=== PATIENT | male | born 2005 | race Two or more races ===

== ENCOUNTER 2024-03-13 23:59 | Inpatient (IN) | payer MEDICAID ==
[~2024-03-13] VITALS: Ht 167.6 cm; Wt 82.7 kg
[2024-03-14 01:00] LABS: BASOPHILS % (AUTO) 0.7 % (0.0-2.0); EOSINOPHILS % (AUTO) 1.1 % (1.0-6.0); HEMATOCRIT 46.1 % (41-53); HEMOGLOBIN 15.5 g/dL (13.5-17.5); LYMPHOCYTES # (AUTO) 2.8 K/uL (1.0-4.8); LYMPHOCYTES % (AUTO) 40.5 % (22.0-44.0); MEAN CORPUSCULAR HEMOGLOBIN 29.9 pg (26.0-34.0); MEAN CORPUSCULAR HGB CONC 33.7 G/dL (31.0-37.0); MEAN CORPUSCULAR VOLUME 89 fL (80-100); MONOCYTES # (AUTO) 0.5 K/uL (0.1-1.0); MONOCYTES % (AUTO) 7.4 % (2.0-9.0); NEUTROPHILS # (AUTO) 3.5 K/uL (1.8-7.7); NEUTROPHILS % (AUTO) 50.3 % (40.0-70.0); PLATELET COUNT (AUTO) 206 K/uL (150-450)
[2024-03-14] MEDS: SODIUM CHLORIDE 0.9% 1,000 ML IV ONE (01:06)
[2024-03-14 01:18] LABS: COVID AG,FIA SOURCE NASAL SWAB
[2024-03-14 02:03] LABS: SARS-COV2 (COVID) ANTIGEN,FIA Negative (Negative)
[2024-03-14 02:38] LABS: ANION GAP 12 mmol/L (8-16); CALCIUM, TOTAL 8.3 mg/dL (8.8-10.5); CARBON DIOXIDE 23 mmol/L (22-29); CHLORIDE 107 mmol/L (98-107); CREATININE 0.94 mg/dL (0.60-1.30); GLOMERULAR FILTR. RATE CALC > 60 mL/min (>60); GLUCOSE,RANDOM 105 mg/dL (70-110); POTASSIUM 3.4 mmol/L (3.5-5.1); SODIUM SERUM 142 mmol/L (136-145); UREA NITROGEN, BLOOD 9 mg/dL (7-18)
[2024-03-14 02:43] LABS: ALANINE AMINOTRANSFERASE 36 U/L (12-78); ALBUMIN 3.7 g/dL (3.4-5.0); ALKALINE PHOSPHATASE 77 U/L (46-116); ASPARTATE AMINOTRANSFERASE 30 U/L (15-37); TOTAL PROTEIN, SERUM 6.8 g/dL (6.4-8.2)
[2024-03-14 02:45] LABS: APPEARANCE,URINE CLEAR (CLEAR); BILIRUBIN,URINE NEGATIVE (NEGATIVE); COLOR,URINE LIGHT YELLOW (YELLOW); GLUCOSE, URINE (UA) NEGATIVE (NEGATIVE); KETONES,URINE NEGATIVE (NEGATIVE); LEUKOCYTE ESTERASE ,URINE NEGATIVE (NEGATIVE); NITRATE,URINE NEGATIVE (NEGATIVE); OCCULT BLOOD,URINE NEGATIVE (NEGATIVE); SPECIFIC GRAVITIY, URINE 1.021 (1.003-1.030); UROBILINOGEN,URINE <=1.0 mg/dL (<=1.0)
[2024-03-14 02:46] LABS: SALICYLATE < 0.2 mg/dL (2.8-20.0)
[2024-03-14 02:47] LABS: ACETAMINOPHEN 109 mcg/mL (10-30)
[2024-03-14 02:48] LABS: PROTEIN,URINE NEGATIVE (NEGATIVE)
[2024-03-14 02:51] LABS: ALCOHOL, URINE DRUG SCREEN NEGATIVE (NEGATIVE); AMPHET/METH SCREEN,URINE NEGATIVE (NEGATIVE); BARBITURATE SCREEN, URINE NEGATIVE (NEGATIVE); BENZODIAZEPINES SCREEN,URINE NEGATIVE (NEGATIVE); CANNABINOID SCREEN,URINE NEGATIVE (NEGATIVE); COCAINE SCREEN,URINE NEGATIVE (NEGATIVE); METHADONE SCREEN, URINE NEGATIVE (NEGATIVE); OPIATE SCREEN,URINE NEGATIVE (NEGATIVE); PHENCYCLIDINE SCREEN,URINE NEGATIVE (NEGATIVE)
[2024-03-14 03:51] LABS: ALBUMIN 3.6 g/dL (3.4-5.0); BILIRUBIN,DIRECT 0.3 mg/dL (0.00-0.20); TOTAL PROTEIN, SERUM 6.6 g/dL (6.4-8.2)
[2024-03-14] MEDS ORDERED: WATER IV ONE (04:30)
[2024-03-14] MEDS ORDERED: ACETYLCYSTEINE IV ONE (04:30)
[2024-03-14] MEDS ORDERED: DEXTROSE 5% IV ONE (04:30)
[2024-03-14] MEDS: DEXTROSE 5% IV ONE ×2 (04:46→09:57)
[2024-03-14] MEDS: WATER IV ONE ×2 (04:46→09:57)
[2024-03-14] MEDS: ACETYLCYSTEINE IV ONE ×2 (04:46→09:57)
[2024-03-14] MEDS: ONDANSETRON HCL 4 MG/2 ML VIAL IVP ONE (05:56)
[2024-03-14] MEDS: DOCUSATE SODIUM 100 MG CAPSULE PO SCH (08:16)
[2024-03-14] MEDS ORDERED: MAGNESIUM SULFATE 4 GM/WATER 100 ML IV PRN (08:30)
[2024-03-14] MEDS ORDERED: MAGNESIUM SULFATE 2 GM/WATER 50 ML IV PRN (08:30)
[2024-03-14] MEDS ORDERED: POTASSIUM CHL 10 MEQ/WATER 50 ML IV PRN (08:30)
[2024-03-14] MEDS ORDERED: MAGNESIUM OXIDE 400 MG TABLET PO PRN (08:30)
[2024-03-14] MEDS ORDERED: POTASSIUM CHLORIDE 20 MEQ ER TABLET PO PRN (08:30)
[2024-03-14] MEDS: PANTOPRAZOLE SODIUM 40 MG DR TABLET PO SCH (09:57)
[2024-03-15] MEDS: ONDANSETRON HCL 4 MG/2 ML VIAL IVP PRN (03:35)
[2024-03-15 03:49] LABS: ALANINE AMINOTRANSFERASE 35 U/L (12-78); ALBUMIN 3.5 g/dL (3.4-5.0); ALKALINE PHOSPHATASE 73 U/L (46-116); ASPARTATE AMINOTRANSFERASE 21 U/L (15-37); BILIRUBIN,TOTAL 2.7 mg/dL (0.1-1.0); TOTAL PROTEIN, SERUM 6.9 g/dL (6.4-8.2)
[2024-03-15 03:52] LABS: ACETAMINOPHEN < 2 mcg/mL (10-30)
[2024-03-15] MEDS ORDERED: LORazepam 2 MG TABLET PO PRN (11:15)
[2024-03-15] MEDS ORDERED: HALOPERIDOL 5 MG TABLET PO PRN (11:15)
[2024-03-15] MEDS ORDERED: ZOLPIDEM TARTRATE 10 MG TABLET PO PRN (11:15)
[2024-03-15 15:02] VITALS: BP 129/72; PULSE 53; RESP 18; TEMP 97.9; O2SAT 97
[2024-03-15] MEDS ORDERED: INFLUENZA VIRUS VACCINE TVS (6MO+) 2024-25/PF 45 MCG/0.5 ML SYRINGE IM. ONE (15:45)
[2024-03-15] MEDS ORDERED: CloNIDine HCL 0.1 MG TABLET PO PRN (17:30)
[2024-03-15] MEDS ORDERED: ALBUTEROL SULFATE HFA 90 MCG/PUFF 8 GM INHALER IH PRN (17:30)
[2024-03-15] MEDS ORDERED: MAG HYDROX/ALUMINUM HYD/SIMETH ES 30 ML SUSPENSION UDCUP PO PRN (17:30)
[2024-03-15] MEDS ORDERED: MAGNESIUM HYDROXIDE SUSPENSION 30 ML UDCUP PO PRN (17:30)
[2024-03-15] MEDS ORDERED: BENZOCAINE/MENTHOL LOZENGE PO PRN (17:30)
[2024-03-15] MEDS ORDERED: ONDANSETRON 4 MG TABLET PO PRN (17:30)
[2024-03-15] MEDS ORDERED: BACITRACIN 28 GM OINTMENT TP PRN (17:30)
[2024-03-15] MEDS ORDERED: PETROLATUM,WHITE 28 GM JELLY TP PRN (17:30)
[2024-03-15] MEDS ORDERED: IBUPROFEN 600 MG TABLET PO PRN (17:30)
[2024-03-15] MEDS ORDERED: OMEPRAZOLE 20 MG CAPSULE PO PRN (17:30)
[2024-03-15] MEDS ORDERED: LOPERAMIDE HCL 2 MG CAPSULE PO PRN (17:30)
[2024-03-15] MEDS ORDERED: DOCUSATE SODIUM 100 MG CAPSULE PO PRN (17:30)
[2024-03-15] MEDS ORDERED: ACETAMINOPHEN 325 MG TABLET PO PRN (17:30)
[2024-03-15] MEDS: DIVALPROEX SODIUM 500 MG DR TABLET PO SCH (21:29)
[2024-03-15 21:58] VITALS: BP 129/72; PULSE 63; RESP 18; TEMP 98.1; O2SAT 97
[2024-03-16 10:54] VITALS: BP 108/62; PULSE 68; RESP 18; TEMP 98.1; O2SAT 98
== END 2024-03-16 19:15 | disposition home or self-care (01) | DRG 817 ==
LOC: EMS 23:59 → EDH 03-14 07:05 → 3EI 03-15 15:48
PROVIDERS: ADMIT Psychiatry & Neurology Psychiatry; ATTEND Psychiatry & Neurology Psychiatry
DX: T39.1X2A Poisoning by 4-Aminophenol derivatives, intentional self-harm, initial encounter (principal); E83.42 Hypomagnesemia; F20.9 Schizophrenia, unspecified; R00.1 Bradycardia, unspecified; E87.6 Hypokalemia; F32.9 Major depressive disorder, single episode, unspecified; Z20.822 Contact with and (suspected) exposure to COVID-19; F41.9 Anxiety disorder, unspecified; G47.00 Insomnia, unspecified; K59.00 Constipation, unspecified; Z91.51 Personal history of suicidal behavior; Y92.89 Other specified places as the place of occurrence of the external cause; F10.90 Alcohol use, unspecified, uncomplicated; T14.91XA Suicide attempt, initial encounter
CPT/HCPCS: 71045; 80053; 80076; 80307; 81003; 82040; 82248; 82550; 83735; 85025; 85610; 85730; 93005; 99291; G0378; G0480; G0481; J0132; J2405; J7060; 36415-L1; 36415-TC

== ENCOUNTER 2024-03-22 16:40 | Emergency (ER) | payer MEDICAID ==
[~2024-03-22] VITALS: Ht 167.6 cm; Wt 81.8 kg
[2024-03-22 16:43] VITALS: TEMP 98
[2024-03-22 17:21] LABS: APPEARANCE,URINE CLEAR (CLEAR); BILIRUBIN,URINE NEGATIVE (NEGATIVE); COLOR,URINE COLORLESS (YELLOW); GLUCOSE, URINE (UA) NEGATIVE (NEGATIVE); KETONES,URINE NEGATIVE (NEGATIVE); LEUKOCYTE ESTERASE ,URINE NEGATIVE (NEGATIVE); NITRATE,URINE NEGATIVE (NEGATIVE); OCCULT BLOOD,URINE SMALL (NEGATIVE); PH,URINE 6.5 (5.0-8.0); PROTEIN,URINE NEGATIVE (NEGATIVE); SPECIFIC GRAVITIY, URINE 1.008 (1.003-1.030); UROBILINOGEN,URINE <=1.0 mg/dL (<=1.0)
[2024-03-22 17:39] LABS: BACTERIA,URINE Few /HPF (None Seen); RBC,URINE 0-2 /HPF (0-2); WBC,URINE 0-2 /HPF (0-5)
[2024-03-22] MEDS: BACLOFEN 10 MG TABLET PO ONE (18:25)
[2024-03-22] MEDS: LIDOCAINE 5% TRANSDERMAL PATCH TD ONE (18:26)
[2024-03-22 18:27] LABS: BASOPHILS % (AUTO) 2.1 % (0.0-2.0); EOSINOPHILS % (AUTO) 1.2 % (1.0-6.0); HEMATOCRIT 47.3 % (41-53); LYMPHOCYTES # (AUTO) 1.7 K/uL (1.0-4.8); LYMPHOCYTES % (AUTO) 24.9 % (22.0-44.0); MEAN CORPUSCULAR HEMOGLOBIN 29.6 pg (26.0-34.0); MEAN CORPUSCULAR HGB CONC 33.9 G/dL (31.0-37.0); MEAN CORPUSCULAR VOLUME 87 fL (80-100); MONOCYTES # (AUTO) 0.6 K/uL (0.1-1.0); MONOCYTES % (AUTO) 8.4 % (2.0-9.0); NEUTROPHILS # (AUTO) 4.3 K/uL (1.8-7.7); NEUTROPHILS % (AUTO) 63.4 % (40.0-70.0); PLATELET COUNT (AUTO) 208 K/uL (150-450); RED BLOOD CELL COUNT(AUTO) 5.42 MIL/uL (4.50-5.90); RED CELL DISTRIBUTION WIDTH 13.5 % (11.5-14.5); WHITE BLOOD COUNT (AUTO) 6.8 K/uL (4.5-11.0)
[2024-03-22 18:35] LABS: ANION GAP 8 mmol/L (8-16); CALCIUM, TOTAL 9.7 mg/dL (8.8-10.5); CARBON DIOXIDE 30 mmol/L (22-29); CHLORIDE 101 mmol/L (98-107); CREATININE 1.27 mg/dL (0.60-1.30); GLOMERULAR FILTR. RATE CALC > 60 mL/min (>60); GLUCOSE,RANDOM 87 mg/dL (70-110); POTASSIUM 4.2 mmol/L (3.5-5.1); SODIUM SERUM 139 mmol/L (136-145); UREA NITROGEN, BLOOD 14 mg/dL (7-18)
[2024-03-22 18:41] LABS: ALANINE AMINOTRANSFERASE 31 U/L (12-78); ALBUMIN 4.3 g/dL (3.4-5.0); ALKALINE PHOSPHATASE 81 U/L (46-116); ASPARTATE AMINOTRANSFERASE 19 U/L (15-37); BILIRUBIN,TOTAL 0.8 mg/dL (0.1-1.0); LIPASE 37 U/L (16-77); TOTAL PROTEIN, SERUM 8.4 g/dL (6.4-8.2)
[2024-03-22] MEDS: ONDANSETRON 4 MG TABLET PO ONE (18:57)
[2024-03-22] MEDS ORDERED: LIDO700A15 TP (19:14)
[2024-03-22] MEDS ORDERED: BACL10TA PO (19:15)
[2024-03-22 19:40] VITALS: BP 134/67; PULSE 62; RESP 18; O2SAT 99
== END 2024-03-22 19:50 | disposition home or self-care (01) ==
LOC: EMS 16:40
DX: M54.50 Low back pain, unspecified (principal); R11.2 Nausea with vomiting, unspecified
CPT/HCPCS: 99284; 80048; 80076; 81001; 83690; 85025; 36415; Q0162